=== PATIENT | male | born 2000 | race Caucasian/White ===

== ENCOUNTER 2023-03-09 21:03 | Observation (INO) | payer BC ==
[2023-03-09 22:14] LABS: ALT/SGPT 50 U/L (16-61); AST/SGOT 21 U/L (15-37); Albumin 4.1 g/dL (3.4-5.0); Alkaline Phosphatase 83 U/L (45-117); BUN Blood Urea Nitrogen 9 mg/dL (7-18); Bicarbonate 28 mEq/L (21-32); Bilirubin Total 0.3 mg/dL (0.2-1.0); Glomerular Filtration Rate 110 ml/min (=/>90); Glucose Level 161 mg/dL (74-106); Potassium 3.2 mEq/L (3.5-5.1); Protein, Total 8.3 g/dL (6.4-8.2); Sodium Level 139 mEq/L (136-145)
[2023-03-09 22:17] LABS: Bilirubin Direct < 0.1 mg/dL (0-0.2); Bilirubin Indirect, Calculated ND mg/dL (0.2-0.8)
[2023-03-09 22:18] LABS: Troponin High Sensitivity 80.9 pg/mL (<58.9)
--- NOTE | 2023-03-09 22:26 | RAD REPORT ---
[facility] DES[facility]03/09/2023 9:49 pm CLINICAL HISTORY: CHEST PAIN COMPARISON: No comparisons TECHNIQUE: Portable AP view of the chest. FINDINGS: The lungs are clear. No pneumothorax or effusion. The cardiomediastinal contours are unre markable. IMPRESSION: No acute cardiopulmonary process.
[2023-03-09 22:28] LABS: Absolute Lymphocytes (CBC) 2.7 K/uL (0.7-4.9); Hematocrit 46.9 % (39.6-49.0); Lymphocytes % 25.2 % (15.3-44.8); MCV 88.8 fL (80-100); MPV 8.3 fL (7.6-11.3); Platelets 338 thou/uL (152-406); RBC Red Blood Cell Count 5.28 M/uL (4.33-5.43)
[2023-03-09] MEDS ORDERED: NA CHLORIDE 0.9% 1,000 ML ONE (22:28)
[2023-03-09] MEDS ORDERED: METOPROLOL TAR 25 MG TAB ONE (22:37)
[2023-03-09] MEDS ORDERED: ASPIRIN 81 MG CHEWABLE TABLET ONE (22:40)
[2023-03-09] MEDS ORDERED: POTASSIUM 25 MEQ EFFERV TAB ONE (22:41)
--- NOTE | 2023-03-09 22:55 | P.HP ---
Certification for Inpatient Patient admitted to: Observation With expected LOS: <2 Midnights Patient will require the following post-hospital care: None Practitioner: I am a practitioner with admitting privileges, knowledge of patient current condition, hospital course, and medical plan of care. Services: Services provided to patient in accordance with Admission requirements found in Title 42 Section 412.3 of the Code of Federal Regulations Patient History Date of Service: 03/10/23 Reason for admission: CP/NSTEMI History of Present Illness: 22 yo with past medical history of anxiety on Lexapro came in with chest discomfort . Patient was doing okay and was laying down for sleeping when all of a sudden he started having palpitation and noticed that he had heart rate of 160s which woke him up from sleep and has been walking up and down . He felt like heaviness in the chest. Pain and discomfort slightly got better but was prompted to come to ER for further management. No fever or chills. Patient had a presumed upper respiratory symptoms last week. It was associated with diaphoresis. Had some nausea and shortness of breath . He had a similar episode 2 years ago and also a month ago when he felt the same way and subsided by itself. Patient was seen in the ER and was noted to have mild elevation of troponin and was admitted for further management At the time of interview there is no chest pain. Home medications list reviewed: Yes - Past Medical/Surgical History Past Medical History: Reviewed- Non-Contributory Past Surgical History: Reviewed- Non-Contributory -: Appendectomy - Family History Family History: Reviewed- Non-Contributory - Social History Smoking Status: Never smoker Review of Systems 10-point ROS is otherwise unremarkable (All the 14 point review of systems negative except those mentioned HPI) Physical Examination - Vital Signs Temperature: 98.8 F Blood Pressure: 126/72 Pulse: 88 Respirations: 18 Pulse Ox (%): 97 - Physical Exam General: Alert, In no apparent distress, Oriented x3, Cooperative HEENT: Atraumatic, Normocephalic Neck: Supple, 2+ carotid pulse no bruit, No Thyromegaly Respiratory: Clear to auscultation bilaterally, Normal air movement Cardiovascular: Regular rate/rhythm, Normal S1 S2, No rubs Capillary refill: <2 Seconds Gastrointestinal: Soft and benign, Non-distended, W/out hepatosplenomegaly Musculoskeletal: No clubbing, No swelling Integumentary: No rashes Neurological: Normal gait, Normal speech, Normal strength at 5/5 x4 extr, Normal tone, Cranial nerves 3-12 intact, Normal reflexes 2+ Lymphatics: No axilla or inguinal lymphadenopathy - Studies Laboratory Data (last 24 hrs) 03/09/23 03/09/23 21:30 21:30 WBC 10.70 Hgb 16.0 Hct 46.9 Plt Count 338 Sodium 139 Potassium 3.2 L BUN 9 Creatinine 0.99 Glucose 161 H Magnesium 2.0 Total Bilirubin 0.3 AST 21 ALT 50 Alkaline Phosphatase 83 Assessment and Plan - Problems (Diagnosis) (1) NSTEMI (non-ST elevated myocardial infarction) Current Visit: Yes Status: Acute Plan: Monitor closely under telemetry Will trend cardiac enzymes Patient had received aspirin in the ER Will get a cardiology evaluation Will get an echocardiogram We will get a CT of the chest to rule out any other pathology (2) Tachycardia Current Visit: Yes Status: Acute Plan: Heart rate subsided now Monitor closely on telemetry we will start on beta-imer if needed for tachycardia (3) Hypokalemia Current Visit: Yes Status: Acute Plan: Replace electrolytes Anxiety Continue home medications and titrate as needed GI/DVT prophylaxis Advanced directive full code Discharge Plan: Home Plan to discharge in: 24 Hours - Advance Directives Does patient have a Living Will: No Does patient have a Durable POA for Healthcare: No Time Spent Managing Pts Care (In Minutes): 47
[2023-03-09] MEDS ORDERED: ENOXAPARIN 80 MG/0.8 ML SQ ONE (23:08)
[2023-03-09] MEDS ORDERED: NA CHLORIDE 0.9% 1,000 ML IV SCH (23:45)
[2023-03-09] MEDS ORDERED: ONDANSETRON 4 MG/2 ML VIAL IV PRN (23:59)
[2023-03-09] MEDS ORDERED: ACETAMINOPHEN 500 MG TAB PO PRN (23:59)
--- NOTE | 2023-03-10 00:50 | EDPHYS ---
Physician Documentation [facility] Name: Jordon Santacruz Age: 22 yrs Sex: Male : 2000 Arrival Date: 03/09/2023 Time: 21:03 Bed 17 Private MD: ED Physician Davey Ferreira HPI: 03/09 21:20 This 22 yrs old Male presents to ER via Ambulatory with complaints of Anxiety. snw 21:20 The patient presents with a history of heart racing. Context: The symptoms occur at snw rest. Onset: The symptoms/episode began/occurred acutely. Duration: The patient or guardian reports a single episode, that is still ongoing. Modifying factors: The symptoms are aggravated by nothing. Associated signs and symptoms: Pertinent positives: anxiety, chest pain, lightheadedness, sweating. The patient has experienced a previous episode. The patient has not recently seen a physician. Historical: - Allergies: 21:12 No Known Allergies; la4 - Home Meds: 21:12 None [Active]; la4 - PMHx: 21:12 Anxiety; la4 - Immunization history:: Adult Immunizations up to date. - Social history:: Smoking status: Patient denies any tobacco usage or history of. ROS: 21:33 Eyes: Negative for injury, pain, redness, and discharge, ENT: Negative for injury, snw pain, and discharge, Neck: Negative for injury, pain, and swelling, 21:33 Abdomen/GI: Negative for abdominal pain, nausea, vomiting, diarrhea, and constipation, Back: Negative for injury and pain, : Negative for injury, bleeding, discharge, and swelling, MS/Extremity: Negative for injury and deformity, Skin: Negative for injury, rash, and discoloration, Neuro: Negative for headache, weakness, numbness, tingling, and seizure, 21:33 Constitutional: Positive for feeling anxious, feels heartbeat up into neck, 21:33 Cardiovascular: Positive for chest pain, 21:33 Respiratory: Positive for shortness of breath, 21:33 Psych: Positive for anxiety, Negative for depression, drug dependence, homicidal ideation, suicidal ideation, Exam: 21:34 Head/Face: Normocephalic, atraumatic. Eyes: Pupils equal round and reactive to light, snw extra-ocular motions intact. Lids and lashes normal. Conjunctiva and sclera are non-icteric and not injected. Cornea within normal limits. Periorbital areas with no swelling, redness, or edema. ENT: Nares patent. No nasal discharge, no septal abnormalities noted. Tympanic membranes are normal and external auditory canals are clear. Oropharynx with no redness, swelling, or masses, exudates, or evidence of obstruction, uvula midline. Mucous membranes moist. Neck: Trachea midline, no thyromegaly or masses palpated, and no cervical lymphadenopathy. Supple, full range of motion without nuchal rigidity, or vertebral point tenderness. No Meningismus. Chest/axilla: Normal chest wall appearance and motion. Nontender with no deformity. No lesions are appreciated. 21:34 Abdomen/GI: Soft, non-tender, with normal bowel sounds. No distension or tympany. No guarding or rebound. No evidence of tenderness throughout. Back: No spinal tenderness. No costovertebral tenderness. Full range of motion. MS/ Extremity: Pulses equal, no cyanosis. Neurovascular intact. Full, normal range of motion. Neuro: Awake and alert, GCS 15, oriented to person, place, time, and situation. Cranial nerves II-XII grossly intact. Motor strength 5/5 in all extremities. Sensory grossly intact. Cerebellar exam normal. Normal gait. 21:34 Constitutional: The patient appears alert, awake, anxious, 21:34 Cardiovascular: Rate: tachycardic, Rhythm: regular, Pulses: no pulse deficits are appreciated, 21:34 Skin: Appearance: Color: pale, Temperature: normal temperature, Moisture: damp, 21:34 Psych: Behavior/mood is pleasant, cooperative, Affect is calm, Oriented to person, place, time, Patient has no thoughts/intents to harm self or others. Judgement / Insight is normal. Vital Signs: 21:08 BP 144 / 94 RA; Pulse 113 (SPO2 pulse); Resp 18 S; Temp 98.1(O); Pulse Ox 98% on R/A; la4 Height 5 ft. 9 in. ; Pain 0/10; 21:16 BP 144 / 94; Pulse 113; Resp 20; Temp 98.1(O); Pulse Ox 98% ; Pain 10/10; la4 22:46 BP 138 / 89; Pulse 98; Resp 21 S; Pulse Ox 100% on R/A; lg3 22:59 Weight 87.09 kg (R); lg3 03/10 00:34 BP 116 / 66; Pulse 64; Resp 15 S; Pulse Ox 99% on R/A; lg3 03/09 21:08 Pain Scale: Adult la4 21:16 Pain Scale: Adult la4 MDM: 03/09 21:18 Patient medically screened. snw 21:37 Differential diagnosis: arrythmia, dehydration, stress disorder. Data reviewed: vital snw signs, nurses notes. 23:11 Management of patient was discussed with the following: Hospitalist: Dr. Cole. snw Historians other than the Patient: Parent: Mom. Counseling: I had a detailed discussion with the patient and/or guardian regarding the historical points, exam findings, and any diagnostic results supporting the discharge/admit diagnosis, the presence of at least one elevated blood pressure reading (>120/80) during this emergency department visit, lab results, radiology results, the need for further work-up and treatment in the hospital. Response to treatment: the patient's symptoms have mildly improved after treatment. Special discussion:. 03/10 00:50 MCKAY Risk Score: 1 - Recent [<24 hrs] Severe Angina, 1 - Elevated Cardiac Markers, snw Total Score = 2. 03/09 21:19 Order name: Basic Metabolic Panel; Complete Time: 22:39 snw 03/09 21:19 Order name: CBC with Diff; Complete Time: 22:39 snw 03/09 21:19 Order name: LFT's; Complete Time: 22:39 snw 03/09 21:19 Order name: Magnesium; Complete Time: 22:39 snw 03/09 21:19 Order name: Troponin HS; Complete Time: 22:39 snw 03/09 21:19 Order name: TSH; Complete Time: 22:39 snw 03/09 22:21 Order name: T4 Free; Complete Time: 22:39 EDMS 03/10 01:28 Order name: Troponin High Sensitivity; Complete Time: 01:33 EDMS 03/10 01:28 Order name: Lipid Profile; Complete Time: 01:33 EDMS 03/10 01:28 Order name: Magnesium; Complete Time: 01:33 EDMS 03/09 21:19 Order name: XRAY Chest (1 view); Complete Time: 22:28 snw 03/09 22:51 Order name: Chest Angio EDMS 12/17 21:19 Order name: EKG; Complete Time: 21:20 snw 03/09 22:55 Order name: CONS Physician Consult [facility] 03/09 21:19 Order name: Cardiac monitoring; Complete Time: 22:03 snw 03/09 21:19 Order name: EKG - Nurse/Tech; Complete Time: 21:39 snw 03/09 21:19 Order name: IV Saline Lock; Complete Time: 21:39 snw 03/09 21:19 Order name: Labs collected and sent; Complete Time: 21:39 snw 03/09 21:19 Order name: O2 Per Protocol; Complete Time: 21:39 snw 03/09 21:19 Order name: O2 Sat Monitoring; Complete Time: 21:39 snw 03/09 22:50 Order name: NPO: post MN; Complete Time: 23:03 snw EC/17 21:35 Rate is 89 beats/min. Rhythm is regular. QRS [place] is Normal. PA interval is normal. QRS snw interval is normal. Q waves are Present in leads III, aVR. Clinical impression: NSR w/ Non-specific ST/T Changes. Administered Medications: 22:31 Drug: NS 0.9% IV 1000 ml IV at 125 ml/hr continuous Route: IV; Rate: 125 ml/hr; Site: 3 right antecubital; 03/10 01:05 Follow up: Response: No adverse reaction; IV Status: Completed infusion 3 03/09 22:47 Drug: Aspirin PO Chewable Tablet 324 mg PO once; 81 mg tablets x 4 Route: PO; 3 03/10 01:05 Follow up: Response: No adverse reaction 3 03/09 22:47 Drug: Metoprolol PO 25 mg PO once Route: PO; lg3 03/10 01:04 Follow up: Response: No adverse reaction 3 03/09 22:47 Drug: Potassium PO Effervescent Tablet 50 mEq PO once; dissolve in 4 ounces of water or lg3 juice Route: PO; 03/10 01:04 Follow up: Response: No adverse reaction 3 03/09 23:27 Drug: Enoxaparin Sub-Q 1 mg/kg Sub-Q once Route: Sub-Q; Site: abdomen; 3 03/10 01:04 Follow up: Response: No adverse reaction lg3 Disposition Summary: 03/10/23 00:49 Hospitalization Ordered Notes: Hospitalization Status: Inpatient Admission snw Provider: Lorenzo Cole Location: Telemetry/MedSurg (Inpatient) snw Condition: Stable snw Problem: new snw Symptoms: have improved snw Bed/Room Type: Standard snw Room Assignment: 406(03/10/23 00:50) as6 Diagnosis - Subsequent non-ST elevation (NSTEMI) myocardial infarction snw - Palpitations snw Forms: - Medication Reconciliation Form snw - SBAR form snw - Leadership Thank You Letter snw Addendum: 03/13/2023 12:50 I was immediately available for consultation during this patient's visit. I did not e c2 personally see the patient or guide the patient's care. . Signatures: Dispatcher [employer] EDAnisa Nails, TEA-C CODING COORDINATOR-Csnw Dee Ricks RN RN lg3 Mike Baxter RN RN as6 Davey Ferreira MD MD ec2 Dilia Burns RN RN la4 Corrections: (The following items were deleted from the chart) 03/10 00:50 00:49 snw as6
--- NOTE | 2023-03-10 00:50 | ER ---
Nurse's Notes [facility] Name: Jordon Santacruz Age: 22 yrs Sex: Male : 2000 Arrival Date: 03/09/2023 Time: 21:03 Bed 17 Private MD: Diagnosis: Subsequent non-ST elevation (NSTEMI) myocardial infarction;Palpitations Presentation: 03/09 21:08 Chief complaint: Patient states: i think I'm having a panic attack" States that his la4 heart rate is really fast, chest tight, sweaty, and I'm anxious. Reports that he has had panic attacks before and was prescribed lexapro but stopped taking it because it made him foggy and his goal was to get off the medication. Pt reports increased stress at work recently. Coronavirus screen: Vaccine status: Patient reports receiving the 1st dose of the Covid vaccine. Ebola Screen: Patient negative for fever greater than or equal to 101.5 degrees Fahrenheit, and additional compatible Ebola Virus Disease symptoms Patient denies exposure to infectious person. Patient denies travel to an Ebola-affected area in the 21 days before illness onset. No symptoms or risks identified at this time. Initial Sepsis Screen: Does the patient meet any 2 criteria? No. Patient's initial sepsis screen is negative. Does the patient have a suspected source of infection? No. Patient's initial sepsis screen is negative. Risk Assessment: Do you want to hurt yourself or someone else? Patient reports no desire to harm self or others. Onset of symptoms was March 09, 2023. 21:08 Method Of Arrival: Ambulatory la4 21:08 Acuity: ROMERO 4 la4 21:15 Care prior to arrival: Medication(s) given: Lexapro 10mg taken prior to arrival to the la4 ED. Triage Assessment: 21:12 General: Appears uncomfortable, stressed. Behavior is calm, cooperative, appropriate la4 for age, anxious. Pain: Denies pain. Neuro: Gee Agitation-Sedation Scale (RASS): 0 - Alert and Calm Level of Consciousness is awake, alert, obeys commands, Oriented to person, place, time, situation, Appropriate for age. Cardiovascular: Heart tones S1 S2 Capillary refill < 3 seconds is sluggish Patient's skin is warm and dry. Pulses are all present. Edema is absent. Chest pain is denied. Respiratory: No deficits noted. Reports shortness of breath cough that is non-productive, reports getting over a recent cold Airway is patent Respiratory effort is even, unlabored, Respiratory pattern is regular, symmetrical, Breath sounds are clear bilaterally. Historical: - Allergies: 21:12 No Known Allergies; la4 - Home Meds: 21:12 None [Active]; la4 - PMHx: 21:12 Anxiety; la4 - Immunization history:: Adult Immunizations up to date. - Social history:: Smoking status: Patient denies any tobacco usage or history of. Screenin:32 [facility] ED Fall Risk Assessment (Adult) History of falling in the last 3 months, lg3 including since admission No falls in past 3 months (0 pts). Abuse screen: Denies threats or abuse. Denies injuries from another. Nutritional screening: No deficits noted. Tuberculosis screening: No symptoms or risk factors identified. Assessment: 22:32 General: Appears in no apparent distress. uncomfortable, Behavior is cooperative, lg3 anxious. Pain: Denies pain. Neuro: No deficits noted. Gee Agitation-Sedation Scale (RASS): 0 - Alert and Calm Level of Consciousness is awake, alert, obeys commands, Oriented to person, place, time, situation. Cardiovascular: Reports diaphoresis, palpitations, Capillary refill < 3 seconds Clubbing of nail beds is absent JVD is absent Patient's skin is warm and dry. Respiratory: No deficits noted. Airway is patent Respiratory effort is even, unlabored, Respiratory pattern is regular, symmetrical. GI: No deficits noted. No signs and/or symptoms were reported involving the gastrointestinal system. : No deficits noted. No signs and/or symptoms were reported regarding the genitourinary system. EENT: No deficits noted. No signs and/or symptoms were reported regarding the EENT system. Derm: No deficits noted. No signs and/or symptoms reported regarding the dermatologic system. Skin is intact, is healthy with good turgor, Skin is dry, Skin is normal, Skin temperature is warm. Musculoskeletal: No deficits noted. No signs and/or symptoms reported regarding the musculoskeletal system. Circulation, motion, and sensation intact. Range of motion: intact in all extremities. 03/10 00:34 Reassessment: Patient appears in no apparent distress at this time. Patient and/or lg3 family updated on plan of care and expected duration. Pain level reassessed. Patient is alert, oriented x 3, equal unlabored respirations, skin warm/dry/pink. Patient states feeling better. Patient states symptoms have improved. 01:04 General: attempted to call report. nurse not avaliable. lg3 Vital Signs: 03/09 21:08 BP 144 / 94 RA; Pulse 113 (SPO2 pulse); Resp 18 S; Temp 98.1(O); Pulse Ox 98% on R/A; la4 Height 5 ft. 9 in. ; Pain 0/10; 21:16 BP 144 / 94; Pulse 113; Resp 20; Temp 98.1(O); Pulse Ox 98% ; Pain 10/10; la4 22:46 BP 138 / 89; Pulse 98; Resp 21 S; Pulse Ox 100% on R/A; lg3 22:59 Weight 87.09 kg (R); lg3 03/10 00:34 BP 116 / 66; Pulse 64; Resp 15 S; Pulse Ox 99% on R/A; lg3 03/09 21:08 Pain Scale: Adult la4 21:16 Pain Scale: Adult la4 ED Course: 03/09 21:05 Patient arrived in ED. jj6 21:08 [facility]C [facility] snw 21:08 Davey Ferreira MD is Attending Physician. snw 21:12 Triage completed. la4 21:16 Arm band placed on right wrist. Patient placed in an exam room, on a stretcher, on la4 phototypesetting equipment monitor, on pulse oximetry. 21:38 EKG done, by ED staff, reviewed by Anisa ROY. ls5 21:39 Inserted saline lock: 20 gauge in right antecubital area, using aseptic technique. ls5 Blood collected. 21:51 XRAY Chest (1 view) In Process Unspecified. EDMS 22:03 TSH Sent. lg3 22:03 Basic Metabolic Panel Sent. lg3 22:03 CBC with Diff Sent. lg3 22:03 LFT's Sent. lg3 22:03 Magnesium Sent. lg3 22:03 Troponin HS Sent. lg3 22:31 Dee Ricks, RN is Primary Nurse. lg3 22:32 Patient has correct armband on for positive identification. Placed in gown. Bed in low lg3 position. Call light in reach. Side rails up X 1. Client placed on continuous cardiac and pulse oximetry monitoring. NIBP monitoring applied. bus monitor on. Door closed. Noise minimized. Warm blanket given. Family accompanied patient. 22:32 Patient maintains SpO2 saturation greater than 95% on room air. 3 03/10 00:49 Lorenzo Cole MD is Hospitalizing Provider. snw 01:04 No provider procedures requiring assistance completed. Patient admitted, IV remains in lg3 place. intact, No redness/swelling at site. Administered Medications: 03/09 22:31 Drug: NS 0.9% IV 1000 ml IV at 125 ml/hr continuous Route: IV; Rate: 125 ml/hr; Site: 3 right antecubital; 03/10 01:05 Follow up: Response: No adverse reaction; IV Status: Completed infusion [facility] 03/09 22:47 Drug: Aspirin PO Chewable Tablet 324 mg PO once; 81 mg tablets x 4 Route: PO; 3 03/10 01:05 Follow up: Response: No adverse reaction [facility] 03/09 22:47 Drug: Metoprolol PO 25 mg PO once Route: PO; 3 03/10 01:04 Follow up: Response: No adverse reaction [facility] 03/09 22:47 Drug: Potassium PO Effervescent Tablet 50 mEq PO once; dissolve in 4 ounces of water or lg3 juice Route: PO; 03/10 01:04 Follow up: Response: No adverse reaction [facility] 03/09 23:27 Drug: Enoxaparin Sub-Q 1 mg/kg Sub-Q once Route: Sub-Q; Site: abdomen; [facility] 03/10 01:04 Follow up: Response: No adverse reaction 3 Medication: 01:04 VIS not applicable for this client. 3 Outcome: 00:49 Decision to Hospitalize by Provider. snw 01:35 Admitted to Med/surg accompanied by nurse, via wheelchair, room 406, Report called to [facility] Betito 01:35 Condition: stable 01:35 Instructed on the need for admit, Demonstrated understanding of instructions, 01:36 Patient left the ED. 3 Signatures: Dispatcher [employer] EDMS Anisa Rock, DAVEC PERIODONTAL ASSISTANT-Dee Carpio RN RN 3 Crystal Vargas6 Neel Suarez ls5 Dilia Burns RN RN la4 Corrections: (The following items were deleted from the chart) 03/09 21:15 21:08 Chief complaint: Patient states: i think I'm having a panic attack" States that la4 his heart rate is really fast, chest tight, sweaty, and I'm anxious. Reports that he has had panic attacks before and was prescribed lexapro but stopped taking it because it made him foggy and his goal was to get off the medication. la4
[2023-03-10 01:17] VITALS: BMI 28.3
[2023-03-10 01:28] LABS: Magnesium 1.9 mg/dL (1.6-2.4)
[2023-03-10] MEDS ORDERED: ASPIRIN EC 81 MG TAB PO SCH (09:00)
[2023-03-10 10:07] VITALS: O2SAT 98
[2023-03-10] MEDS ORDERED: POTASSIUM CL SA 10 MEQ TAB PO ONE (10:27)
[2023-03-10 12:20] VITALS: BP 122/82; TEMP 97.5
--- NOTE | 2023-03-10 12:26 | EKG ---
Test Date: 2023-03-09 Test Time: 21:35:38 Senior [employer] Web Developer: MEASUREMENT RESULTS: Intervals: Rate: 89 MT: 148 QRSD: 86 QT: 318 QTc: 386 [place]: P: 57 MT: 148 QRS: 56 T: 62 INTERPRETIVE STATEMENTS: Normal sinus rhythm Nonspecific T wave abnormality Abnormal ECG No previous ECG available for comparison Electronically Signed On 03-10-23 12:25:32 WOMEN'S SOCCER COACH by Saurav Chan
--- NOTE | 2023-03-10 15:03 | P.DS ---
Admission Date: 03/09/23 Discharge Date: 03/10/23 Disposition: ROUTINE DISCHARGE Discharge Condition: FAIR Reason for Admission: CP/NSTEMI - Problems (1) Elevated troponin Current Visit: Yes Status: Acute (2) Anxiety attack Current Visit: Yes Status: Acute (3) Hypokalemia Current Visit: Yes Status: Acute (4) Tachycardia Current Visit: Yes Status: Acute Brief History of Present Illness: 22 yo with past medical history of anxiety on Lexapro came in with chest discomfort. Patient was doing okay and was laying down for sleeping when all of a sudden he started having palpitation and noticed that he had heart rate of 160s which woke him up from sleep. He felt like heaviness in the chest. Symptoms are associated with diaphoresis, nausea and shortness of breath. Pain and discomfort slightly got better but was prompted to come to ER for further management. No fever or chills. Patient had a presumed upper respiratory symptoms last week. He had a similar episode 2 years ago and also a month ago when he felt the same way and subsided by itself. Patient was seen in the ER and was noted to have mild elevation of troponin and was admitted for further management. Hospital Course: Patient placed in observation on the medical floor. Troponin trended flat. Patient was asymptomatic during the hospital stay. Heart rate was in the 50s to 60s. Echocardiogram was done and per cardiology results is unremarkable. Lipid profile showed elevated blood triglyceride level. Exercise and diet modification recommended. Cardiology recommended follow-up in the office for outpatient stress test. Vital Signs/Physical Exam: Temp Pulse Resp BP Pulse Ox 97.5 F 60 20 122/82 98 03/10/23 12:00 03/10/23 12:03/10/23 12:00 03/10/23 12:03/10/23 12:00 General: Alert, In no apparent distress, Oriented x3 HEENT: Mucous membr. moist/pink Neck: Supple, JVD not distended Respiratory: Clear to auscultation bilaterally, Normal air movement Cardiovascular: No edema, Regular rate/rhythm, Normal S1 S2 Gastrointestinal: Normal bowel sounds, Soft and benign, Non-distended, No tenderness Musculoskeletal: No swelling Integumentary: No rashes, No cyanosis Neurological: Normal speech, Normal strength at 5/5 x4 extr Laboratory Data at Discharge: WBC 10.70 thou/uL (4.3-10.9) 03/09/23 21:30 Hgb 16.0 g/dL (13.6-17.9) 03/09/23 21:30 Hct 46.9 % (39.6-49.0) 03/09/23 21:30 Plt Count 338 thou/uL (152-406) 03/09/23 21:30 Sodium 139 mEq/L (136-145) 03/09/23 21:30 Potassium 4.4 mEq/L (3.5-5.1) D 03/10/23 11:58 BUN 9 mg/dL (7-18) 03/09/23 21:30 Creatinine 0.99 mg/dL (0.70-1.30) 03/09/23 21:30 Glucose 161 mg/dL (74-106) H 03/09/23 21:30 Magnesium 1.9 mg/dL (1.6-2.4) 03/10/23 00:37 Total Bilirubin 0.3 mg/dL (0.2-1.0) 03/09/23 21:30 AST 21 U/L (15-37) 03/09/23 21:30 ALT 50 U/L (16-61) 03/09/23 21:30 Alkaline Phosphatase 83 U/L (45-117) 03/09/23 21:30 Triglycerides 294 mg/dL (<150) H 03/10/23 00:37 Cholesterol 159 mg/dL (<200) 03/10/23 00:37 HDL Cholesterol 24 mg/dL (40-60) L 03/10/23 00:37 Cholesterol/HDL Ratio 6.63 03/10/23 00:37 Home Medications: NK [No Home Meds] 03/10/23 Diet: AHA Activity: Ad rosa Followup: Saurav Chan MD [ACTIVE - CAN ADMIT] - (Within 1 to 2 weeks. Please call office for arrangements for stress test.) Time spent managing pt's care (in minutes): 27
--- NOTE | 2023-03-10 16:41 | P.CNS ---
Date of Consult: 03/10/23 Reason for Consult: NSTEMI Requesting Physician: Nando Cole Primary Care Provider: Dr. Cordoba Chief Complaint: CP/NSTEMI History of Present Illness: Mr. Yun is a 22 yo with a past medical history of anxiety, panic attack one year ago. He took Lexapro for awhile but has not taken antidepressants in at least 6mo. Last week he states he had an upper respiratory infection that is quickly resolving. He worked 12 hours, felt good, awoke in the night with palpitations into his neck, substernal chest pressure, some diaphoresis, and nausea. His watch showed a heartrate in the 160s. He thought it was a panic attack but presented to the ED. He was given a 1 L NS bolus, aspirin, and metoprolol. His chest pain resolved. His initial EKG showed NSR with t wave abnormalities and his troponin was 80.9. He was admitted for further troponin trends. Allergies No Known Allergies Allergy (Verified 03/10/23 01:11) Home Medications: NK [No Home Meds] 03/10/23 - Past Medical/Surgical History Diabetic: No -: anxiety -: Appendectomy Psychosocial/ Personal History: Lives at home with his Parents - Social History Smoking Status: Never smoker Alcohol use: Yes CD- Drugs: No Caffeine use: Yes Place of Residence: Home Review of Systems 10-point ROS is otherwise unremarkable General: Sweats, Malaise Respiratory: Shortness of Breath Cardiovascular: Chest Pain, Palpitations Gastrointestinal: Nausea Physical Examination Temp Pulse Resp BP Pulse Ox 97.5 F 60 20 122/82 98 03/10/23 12:00 03/10/23 12:00 03/10/23 12:00 03/10/23 12:00 03/10/23 12:00 General: Alert, Oriented x3 HEENT: Atraumatic, Normocephalic, PERRLA Neck: Supple, 2+ carotid pulse no bruit, JVD not distended Respiratory: Clear to auscultation bilaterally, Normal air movement Cardiovascular: No edema, Normal pulses, Regular rate/rhythm Capillary refill: <2 Seconds Gastrointestinal: Normal bowel sounds, Soft and benign Musculoskeletal: No clubbing Integumentary: No rashes Neurological: Normal gait, Normal speech, Normal tone Lymphatics: No axilla or inguinal lymphadenopathy External genitalia: Deferred Rectal: Deferred Laboratory Data (last 24 hrs) 03/09/23 03/09/23 21:30 21:30 WBC 10.70 Hgb 16.0 Hct 46.9 Plt Count 338 Sodium 139 Potassium 3.2 L BUN 9 Creatinine 0.99 Glucose 161 H Magnesium 2.0 Total Bilirubin 0.3 AST 21 ALT 50 Alkaline Phosphatase 83 - Problems (1) Elevated troponin Status: Acute Plan: Trend troponin, telemetry ECHO done EF 60-65%, trace TR/MR normal diastolic function (2) Hypokalemia Status: Acute Plan: Monitor and correct electrolytes (3) Tachycardia Status: Acute Plan: Metoprolol given in ED. Will follow up outpatient. Possible Holter, NM stress Critical Care: No
--- NOTE | 2023-03-10 20:28 | RAD REPORT ---
EXAM DESCRIPTION: CT - Chest Angio - 03/10/2023 6:14 am CLINICAL HISTORY: The patient is 22 years old and is Male; PE / CTA TECHNIQUE: Axial computed tomographic angiography images of the chest with intravenous contrast. S agittal and coronal reformatted images were created and reviewed. This CT exam was performed using one or more of the following dose reduction techniques: automated exposure control, adjustment of t he mA and/or kV according to patient size, and/or use of iterative reconstruction technique. MIP re constructed images were created and reviewed. COMPARISON: No relevant prior studies available. FINDINGS: Pulmonary arteries: Unremarkable. No pulmonary embolism. Aorta: No acute findings. No thoracic aortic aneurysm. Lungs: Unremarkable. No mass. No consolidation. Pleural space: Unremarkable. No significant effusion. No pneumothorax. Heart: Unremarkable. No cardiomegaly. No significant pericardial effusion. No evidence of R V dysfunction. Bones/joints: No acute fracture. No dislocation. Soft tissues: Unremarkable. Lymph nodes: Unremarkable. No enlarged lymph nodes. IMPRESSION: No acute finding in the chest. No evidence of pulmonary embolism. Electronically signed by: Dev Almendarez MD 03/10/2023 12:03 AM LEATHER COLORER Due to temporary technical issues with the PACS/Fluency reporting system, reports are being signed by the in house radiologists without review as a courtesy to insure prompt reporting. The interpreting radiologist is fully responsible for the content of the report.
[2023-03-10] MEDS ORDERED: ATORVASTATIN 40 MG TAB PO SCH (21:00)
--- NOTE | 2023-03-11 07:44 | ECHO ---
HEIGHT: 5 ft 9 in WEIGHT: 192 lb 0 oz DATE OF STUDY: 03/10/[address]: Nando Cole DO 2-DIMENSIONAL: YES M.MODE: YES DOPPLER: YES COLOR FLOW: YES TDS: PORTABLE: YES DEFINITY: BUBBLE STUDY: DIAGNOSIS: NON ST ELEVATION MYOCARDIAL INFARCTION CARDIAC HISTORY: CATHERIZATION: SURGERY: PROSTHETIC VALVE: PACEMAKER: MEASUREMENTS (cm) DIASTOLIC (NORMALS) SYSTOLIC (NORMALS) IVSd 0.9 (0.6-1.2) LA Diam 2.9 (1.9-4.0) LVEF 65% LVIDd 3.9 (3.5-5.7) LVIDs 2.5 (2.0-3.5) %FS 35% LVPWd 1.1 (0.6-1.2) Ao Diam 3.8 (2.0-3.7) 2 DIMENSIONAL ASSESSMENT: RIGHT ATRIUM: NORMAL LEFT ATRIUM: NORMAL RIGHT VENTRICLE: NORMAL LEFT VENTRICLE: NORMAL TRICUSPID VALVE: TRACE TRICUSPID REGURGITATION MITRAL VALVE: TRACE MITRAL REGURGITATION PULMONIC VALVE: NORMAL AORTIC VALVE: NORMAL PERICARDIAL EFFUSION: NONE AORTIC ROOT: NORMAL LEFT VENTRICULAR WALL MOTION: NORMAL DOPPLER/COLOR FLOW: SEE BELOW COMMENTS: 1. NORMAL LEFT VENTRICULAR EJECTION FRACTION 60-65% 2. NORMAL WALL MOTION 3. NORMAL DIASTOLIC FUNCTION 4. TRACE TRICUSPID REGURGITATION, MITRAL REGURGITATION TECHNOLOGIST: KASSIE CHRISTIANSON
== END 2023-03-10 15:32 | disposition home or self-care (01) ==
LOC: ER 21:03 → ERHOLD 23:11 → 4TH 03-10 01:28
PROVIDERS: ADMIT Family Medicine; ATTEND Internal Medicine
DX: I21.4 Non-ST elevation (NSTEMI) myocardial infarction (principal); R00.0 Tachycardia, unspecified; E87.6 Hypokalemia; F41.9 Anxiety disorder, unspecified
CPT/HCPCS: 96361; 93005; 93306; 85025; 80048; 36415; 83735 ×2; 84132; 80061; 80076; 84443; 84484 ×3; 84439; 71275; 71045; 94760 ×2; 96360; 96372; 99285; Q9967; J7030 ×2; G0378 ×3